=== PATIENT | female | born 1995 ===

== ENCOUNTER 2025-01-22 08:31 | Outpatient (AMB) | payer MEDICAID, SELFPAY ==
--- NOTE | 2025-01-22 08:36 | AMB.OBINITIA ---
Vital Signs 01/22/25 08:46 Height 1.63 m Height Method Stated Weight 89.414 kg Weight Measurement Method Standing Scale BMI 33.8 BP 121/82 Blood Pressure Source Automatic Cuff Blood Pressure Location Right Upper Arm Position Sitting Respiration 17 Pulse 69 Pulse Source Monitor Temp 97.4 F Temp Source Temporal Artery Scan Pulse Oximetry (%) 98 Oxygen Delivery Method Room Air Allergies/Home Meds Allergies & Medications Allergies No Known Allergies Allergy (Verified 01/22/25 08:47) Medication Reconciliation No Known Home Medications 01/22/25 [History Confirmed 01/22/25] Intake Visit Data Collection New Patient or Established: New Patient (never been to [facility]) Reason for Visit:: OBI TRANSFER Seen by Clinical Staff ONLY (RN/MA): No Refrigeration Unit Repairer Required: No Do You Feel Safe at Home: Yes Authorities Contacted: N/A PCP or OBGYN visit in last 3 months: No Hx Now: Yes Are you currently on any form of Control: No Last menstrual period: 11/02/24 Pain Present Currently: No Pain Scale Used: Heredia-Bolaños/Numerical Pain scale:: 0 Smoking Status Smoking Status: Never smoker Questionnaires Covid-19 Vaccine Questionnaire Has patient been vacinated for Covid-19 Have you been vacinated for Covid-19: Yes PHQ-9 PHQ-2 Over the last 2 weeks, how often have you been bothered by any of the following problems? 1. Little interest or pleasure in doing things: not at all 2. Feeling down, depressed, or hopeless: several days Total score: 1 PHQ-9 3. Trouble falling or staying asleep, or sleeping too much: Several days 4. Feeling tired or having little energy: Not at all 5. Poor appetite or overeating: Several days 6. Feeling bad about yourself - or that you are a failure or have let yourself or your family down: Not at all 7. Trouble concentrating on things, such as reading the newspaper or watching television: Not at all 8. Moving or speaking so slowly that other people could have noticed? - Or the opposite - being so fidgety or restless that you have been moving around a lot more than usual: not at all 9. Thoughts that you would be better off or of hurting yourself in some way: Not at all Total score: 3.0 If you checked off any problems, how difficult have these problems made it for you to do your work, take care of things at home, or get along with other people?: not difficult at all Source: Developed by Drs. Rd Luo, Soraida Callahan, Dinesh Lester and colleagues, with an educational annamaria from [employer]. Depression screen completed yes Social History Living Situation History Marital Status: Lives With: Spouse Housing: House Tobacco History Smoking Status: Never smoker Second Hand Smoke Exposure: No Alcohol History Alcohol Intake: Never Domestic Abuse History Do You Feel Safe at Home: Yes History of Present Illness HPI Narrative 29-year-old 1 para 0 was transferred from [facility]. Patient's last. She reports is November 02, 2024. Estimated due date August 12, 2025. Patient has good dates. She logs denies social habits. Denies surgery. Denies chronic illness. She has had some nausea and vomiting but otherwise is feeling well patient had basic labs drawn at her first visit in [place] and hCG was [id number]. TSH normal. Patient is O+, antibody screen negative, RPR nonreactive, rubella immune, hepatitis B negative, HIV negative, hep C negative, GC and Chlamydia were normal. Her hemoglobin and platelets were normal. Drug screen negative. Urine pending. OB Initial Visit OB Flowsheet OB Flowsheet Initial Weight: Not Recorded Date <del>?</del> EGA Weight BP Alb Glu CTX Pres Fundal ht FHR Mov Dilation Station Effacement Hx Notes Visit Note 01/22/25 <del>?</del> 11w 4d 89.414 kg 121/82 unknown 12 145 absent 29 yo . iup 11w3, c/o occ N/V. tired, denies SAB complaints/ tsking PNV reviewed OB labs. NIPT and carrier screen today. schedule MFM anatomy scan, sab precaution. increase fluids Menstrual History Menstrual reliability: definite Flow: normal Menstrual regularity: regular Monthly: Yes Age at menarche: 13 On control pills at conception: No OB History : 1 Para: 0 Hx # Pregnancies: 0 Hx Total # of Abortions (Spontaneous & Elective): 0 # of Living Children: 0 Infection History & Risk Evaluation History of STDs: none HIV risk evaluation: low risk Hepatitis B risk evaluation: low risk Patient or partner has history of Genital Herpes: No Varicella/chicken pox status: immunized Genetic Screening & History Genetic Screening/Teratology Counseling - Includes patient, baby's father, or anyone in either family with: 1. Patient's age 35 years or older as of estimated date of delivery: No 2. Thalassemia (Sami, Kenyan, Mediterranean, or Background); MCV less than 80: No 3. Neural Tube Defect (Meningomyelocele, Spina Bifida, or Anencephaly): No 4. Congenital Heart Defect: No 5. Down Syndrome: No 6. Jacek-Sachs (Ashkenazi Denominational, Cajun, Croatian Eagle): No 7. Steph Disease (Ashkenazi Denominational): No 8. Familial Dysautonomia (Ashkenazi Denominational): No 9. Sickle Cell Disease or Trait (): No 10. Hemophilia or other blood disorders: No 11. Muscular Dystrophy: No 12. Cystic Fibrosis: No 13. Aj's Chorea: No 14. Mental Retardation/Autism: No 15. Other inherited genetic or chromosomal disorder: No 16. Maternal Metabolic Disorder (EG,TYPE 1 Diabetes, PKU): No 17. Patient or baby's father had a child with defects not listed above: No 18. Recurrent loss or a stillbirth: No 19. Medications (including supplements, vitamins, herbs or otc drugs)/illicit/recreational drugs/alcohol since last menstrual period: No 20. Any other: No Infection History 1. Live with someone with TB or exposed to TB: No 2. Rash or viral illness since last menstrual period: No 3. Hepatitis B,C: No Other (see comments) Source: [employer] Review of Systems Review of Systems Systems Reviewed: All systems reviewed, normal except as documented Exam General Limitations: no limitations General Appearance: alert, in no apparent distress, comfortable, cooperative, healthy appearing, well developed and well groomed Head Head exam: atraumatic, normocephalic and normal inspection Resp Respiratory exam: Present normal lung sounds bilaterally Card Cardiovascular exam: Present regular rate, normal rhythm and normal heart sounds Abdominal Abdominal exam: Present soft and normal bowel sounds Psych Psychiatric exam: Present normal affect and normal mood Office Procedures OB Clinic LOC & Office Proc's Nursing/Assessment Patient Status: Initial/New Patient OB Clinic Nursing Assessment: Medication Reconciliation, Update PMH in EMR and Vital Signs OB Clinic Coordination of Care: Complex Care and Chronic Disease 1-5, Consent,records obtained, informed consent, Education Simp Pt/Fam, Lab and Imaging orders and Staff clarify orders Special Needs: Heart tones New Patient Charge New Patient Point Assignment: [id number] New Patient Point Charge: SALES AGENT PROTECTIVE SERVICE Level 4 (9154-7223) Assessment & Plan Diagnosis / Problem List (1) Supervision of high risk , unspecified, first trimester: Status: Acute Plan Reviewed labs with patient today. Continue vitamins and iron. Scheduled maternal- medicine anatomy scan. NIPT and carrier screen today. Discussed diet and will exercise. Increase fluids. Return in 4 weeks OB check Additional Plan Follow Up: 4 Weeks (obc)
[2025-01-22 08:46] VITALS: BP 121/82; PULSE 69; RESP 17; TEMP 36.3; O2SAT 98; BMI 33.8
== END 2025-01-22 09:09 | disposition home or self-care (01) ==
LOC: HODSOBC 08:31
PROVIDERS: Supervising Provider Advanced Practice Midwife; Visit Provider Advanced Practice Midwife
DX: O09.91 Supervision of high risk pregnancy, unspecified, first trimester (principal); Z3A.11 11 weeks gestation of pregnancy
CPT/HCPCS: 99204; G0463

== ENCOUNTER 2025-03-23 08:35 | Outpatient (AMB) | payer MEDICAID, SELFPAY ==
[2025-03-23 08:40] VITALS: BP 125/82; PULSE 80; RESP 16; TEMP 36.7; O2SAT 98; BMI 35.4
--- NOTE | 2025-03-23 08:40 | AMB.OBVISIT ---
Vital Signs 03/23/25 08:40 Height 1.63 m Height Method Stated Weight 94.12 kg Weight Measurement Method Standing Scale BMI 35.4 BP 125/82 Blood Pressure Source Automatic Cuff Blood Pressure Location Left Upper Arm Position Sitting Respiration 16 Pulse 80 Pulse Source Monitor Temp 98.1 F Temp Source Oral Pulse Oximetry (%) 98 Oxygen Delivery Method Room Air Allergies/Home Meds Allergies & Medications Allergies No Known Allergies Allergy (Verified 03/23/25 08:53) Medication Reconciliation No Known Home Medications 01/22/25 [History Confirmed 03/23/25] Intake Visit Data Collection New Patient or Established: Established Patient (seen at [facility] within 3 years) Reason for Visit:: CARE Seen by Clinical Staff ONLY (RN/MA): No Textile Cutting Machine Operator Required: No Do You Feel Safe at Home: Yes Authorities Contacted: N/A PCP or OBGYN visit in last 3 months: Yes Hx Now: Yes Are you currently on any form of Control: No Pain Present Currently: No Pain Scale Used: Heredia-Bolaños/Numerical Pain scale:: 0 Smoking Status Smoking Status: Never smoker Questionnaires Covid-19 Vaccine Questionnaire Has patient been vacinated for Covid-19 Have you been vacinated for Covid-19: Yes PHQ-9 PHQ-2 Over the last 2 weeks, how often have you been bothered by any of the following problems? 1. Little interest or pleasure in doing things: not at all 2. Feeling down, depressed, or hopeless: not at all Total score: 0 PHQ-9 3. Trouble falling or staying asleep, or sleeping too much: Not at all 4. Feeling tired or having little energy: Not at all 5. Poor appetite or overeating: Not at all 6. Feeling bad about yourself - or that you are a failure or have let yourself or your family down: Not at all 7. Trouble concentrating on things, such as reading the newspaper or watching television: Not at all 8. Moving or speaking so slowly that other people could have noticed? - Or the opposite - being so fidgety or restless that you have been moving around a lot more than usual: not at all 9. Thoughts that you would be better off or of hurting yourself in some way: Not at all Total score: 0 Source: Developed by Soraida VelasquezW. [place], Dinesh Lester and colleagues, with an educational annamaria from [employer] Depression screen completed yes Social History Living Situation History Lives With: Spouse Housing: House Tobacco History Smoking Status: Never smoker Second Hand Smoke Exposure: No Alcohol History Alcohol Intake: Never Domestic Abuse History Do You Feel Safe at Home: Yes Care OB Visit Log OB Flowsheet Initial Weight: Not Recorded Date <del>?</del> EGA Weight BP Alb Glu CTX Pres Fundal ht FHR Mov Dilation Station Effacement Hx Notes Visit Note 01/22/25 <del>?</del> 11w 4d 89.414 kg 121/82 unknown 12 145 absent 29 yo . iup 11w3, c/o occ N/V. tired, denies SAB complaints/ tsking PNV reviewed OB labs. NIPT and carrier screen today. schedule MFM anatomy scan, sab precaution. increase fluids 03/23/25 <del>?</del> 20w 1d 94.12 kg 125/82 absent unknown 19 132 active + light fm, denies leaking,bleeding, UC, fetus active MFM appointment is scheduled for March 24. Discussed labor precautions. Increase fluids. Discussed movement. Discussed danger signs and symptoms ER precautions. Return in 4 weeks OB check BÁRBARA Calculator Estimated Delivery Date Method Current WG Current Estimate 08/09/25 LMP (Certain) 20w 1d Notes Visit Date: 01/22/25 Last Updated by: Jennifer Charlton CNM 29 yo lmp 11/02/24. EDC 08/12/25. O+,abs-, rpr;;nr, rub imm, hbsag-,hiv-,HC-, gc/ct-, UT-,TSH-43/333 Office Procedures OB Clinic LOC & Office Proc's Nursing/Assessment Patient Status: Established Patient OB Clinic Nursing Assessment: Medication Reconciliation, Update PMH in EMR and Vital Signs OB Clinic Coordination of Care: Complex Care and Chronic Disease 1-5, Consent,records obtained, informed consent, Education Simp Pt/Fam, 1 Ins Authorization, Lab and Imaging orders, Results/Orders obtained and Staff clarify orders Special Needs: Heart tones Established Patient Charge Established Patient Point Assignment: 150 Established Patient Point Charge: EP Level 4 (120-155) Assessment & Plan Diagnosis / Problem List (1) Supervision of high risk , unspecified, first trimester: Status: Acute Plan [facility] appointment 812. Discussed labor precautions. Increase fluids. Discussed danger signs symptoms ER precautions. Return in 4 weeks OB check Additional Plan Follow Up: 4 Weeks (obc)
== END 2025-03-23 09:27 | disposition home or self-care (01) ==
LOC: HODSOBC 08:35
PROVIDERS: Supervising Provider Advanced Practice Midwife; Visit Provider Advanced Practice Midwife
DX: O09.92 Supervision of high risk pregnancy, unspecified, second trimester (principal); Z3A.20 20 weeks gestation of pregnancy
CPT/HCPCS: 99214; G0463

== ENCOUNTER 2025-04-20 08:22 | Outpatient (AMB) | payer MEDICAID, SELFPAY ==
[2025-04-20 08:27] VITALS: BP 122/82; PULSE 74; RESP 16; TEMP 36.2; O2SAT 98; BMI 36.1
--- NOTE | 2025-04-20 08:27 | OBCLNT_ITS ---
Vital Signs 04/20/25 08:27 Height 1.63 m Height Method Stated Weight 95.935 kg Weight Measurement Method Standing Scale BMI 36.1 BP 122/82 Blood Pressure Source Automatic Cuff Blood Pressure Location Left Upper Arm Position Sitting Respiration 16 Pulse 74 Pulse Source Monitor Temp 97.2 F Temp Source Oral Pulse Oximetry (%) 98 Oxygen Delivery Method Room Air Allergies/Home Meds Allergies & Medications Allergies No Known Allergies Allergy (Verified 04/20/25 08:27) Medication Reconciliation aspirin 81 mg tablet,delayed release (Adult Aspirin Regimen) 81 mg PO QDAY #60 tabs 03/23/25 [Rx Confirmed 04/20/25] Intake Visit Data Collection New Patient or Established: Established Patient (seen at [facility] within 3 years) Reason for Visit:: OBC Seen by Clinical Staff ONLY (RN/MA): No Hair Boiler Operator Required: No Do You Feel Safe at Home: Yes Authorities Contacted: N/A PCP or OBGYN visit in last 3 months: Yes Date of Last PCP or OBGYN visit: 03/23/25 Hx Now: Yes Are you currently on any form of Control: No Pain Present Currently: No Pain Scale Used: Heredia-Bolaños/Numerical Pain scale:: 0 Smoking Status Smoking Status: Never smoker Questionnaires Covid-19 Vaccine Questionnaire Has patient been vacinated for Covid-19 Have you been vacinated for Covid-19: Yes PHQ-9 PHQ-2 Over the last 2 weeks, how often have you been bothered by any of the following problems? 1. Little interest or pleasure in doing things: not at all 2. Feeling down, depressed, or hopeless: not at all Total score: 0 PHQ-9 3. Trouble falling or staying asleep, or sleeping too much: Not at all 4. Feeling tired or having little energy: Not at all 5. Poor appetite or overeating: Not at all 6. Feeling bad about yourself - or that you are a failure or have let yourself or your family down: Not at all 7. Trouble concentrating on things, such as reading the newspaper or watching television: Not at all 8. Moving or speaking so slowly that other people could have noticed? - Or the opposite - being so fidgety or restless that you have been moving around a lot more than usual: not at all 9. Thoughts that you would be better off or of hurting yourself in some way: Not at all Total score: 0 If you checked off any problems, how difficult have these problems made it for you to do your work, take care of things at home, or get along with other people?: not difficult at all Source: Developed by Drs. Rd Luo, Soraida Callahan, Dinesh Lester and colleagues, with an educational annamaria from [employer]. Depression screen completed yes Social History Living Situation History Lives With: Spouse Housing: House Tobacco History Smoking Status: Never smoker Second Hand Smoke Exposure: No Alcohol History Alcohol Intake: Never Domestic Abuse History Do You Feel Safe at Home: Yes Care OB Visit Log OB Flowsheet Initial Weight: Not Recorded Date -?-?-?-?-?-?-?-?-?-?-?-?- EGA Weight BP Alb Glu CTX Pres Fundal ht FHR Mov Dilation Station Effacement Hx Notes Visit Note 01/22/25 -?-?-?-?-?-?-?-?-?-?-?-?- 11w 4d 89.414 kg 121/82 unknown 12 145 a bsent 29 yo . iup 11w3, c/o occ N/V. tired, denies SAB complaints/ tsking PNV reviewed OB labs. NIPT and carrier screen today. schedule MFM anatomy scan, sab precaution. increase fluids 03/23/25 -?-?-?-?-?-?-?-?-?-?-?-?- 20w 1d 94.12 kg 125/82 absent unknown 19 132 active + light fm, denies leaking,bleeding, UC, fetus active MFM appointment is scheduled for March 24. Discussed labor precautions. Increase fluids. Discussed movement. Discussed danger signs and symptoms ER precautions. Return in 4 weeks OB check 04/20/25 -?-?-?-?-?-?-?-?-?-?-?-?- 24w 1d 95.935 kg 122/82 absent unknown 23 135 active Compliant with low- dose baby aspirin. Reports good movement. Denies any bleeding, leaking, contractions. Patient reported that she had some pressure in her low pelvic area that went away. She also had a headache 2 days ago that also went away. Continue low-dose baby aspirin 36 weeks. Third trimester labs today. Discussed diet and weight gain. Walk 40 minutes a day. Discussed labor precautions. Increase fluids. Keep MFM appointment May 19. Return in 4 weeks OB check BÁRBARA Calculator Estimated Delivery Date Method Current WG Current Estimate 08/09/25 LMP (Certain) 24w 1d Notes Visit Date: 04/20/25 Last Updated by: Jennifer Charlton CNM 04/20: sono: 19w5, lmp 11/02/24. EDC: 08/09/25. low dose ASA. start NST/BPPat 36 week. : 38-69w6 Visit Date: 01/22/25 Last Updated by: Jennifer Charlton CNM 29 yo lmp 11/02/24. EDC 08/12/25. O+,abs-, rpr;;nr, rub imm, hbsag-,hiv-,HC-, gc/ct-, UT-,TSH-14/43/333 Office Procedures OB Clinic LOC & Office Proc's Nursing/Assessment Patient Status: Established Patient OB Clinic Nursing Assessment: Medication Reconciliation, Update PMH in EMR and Vital Signs OB Clinic Coordination of Care: Education Complex Pt/Fam, Consent,records obtained, informed consent, Lab and Imaging orders and Staff clarify orders Special Needs: Heart tones Established Patient Charge Established Patient Point Assignment: 110 Established Patient Point Charge: EP Level 3 (80-115) Assessment & Plan Diagnosis / Problem List (1) Encounter for supervision of high risk in second trimester, antepartum: Status: Acute Plan Third trimester labs. Continue vitamins. Discussed diet and weight gain. Walk 40 minutes a day. Follow-up M May 19. labor pre cautions discussed. Increase fluids. Return in 4 weeks OB check Additional Plan Follow Up: 4 Weeks (obc)
== END 2025-04-20 08:55 | disposition home or self-care (01) ==
LOC: HODSOBC 08:22
PROVIDERS: Supervising Provider Advanced Practice Midwife; Visit Provider Advanced Practice Midwife
DX: O09.92 Supervision of high risk pregnancy, unspecified, second trimester (principal); Z3A.24 24 weeks gestation of pregnancy; Z79.82 Long term (current) use of aspirin
CPT/HCPCS: 99213; G0463

== ENCOUNTER 2025-05-04 09:41 | Outpatient (CLI) | payer MEDICAID, SELFPAY ==
[2025-05-04 09:51] VITALS: BP 119/61; PULSE 88
[2025-05-04 09:57] VITALS: BP 119/61; PULSE 88; RESP 18; RESP 99; TEMP 36.9; BMI 36.6
== END 2025-05-04 10:20 | disposition home or self-care (01) ==
LOC: S4S1 09:44 → S4SX 09:45
PROVIDERS: Referring Provider Obstetrics & Gynecology; Visit Provider Obstetrics & Gynecology
DX: O36.8120 Decreased fetal movements, second trimester, not applicable or unspecified (principal); Z3A.25 25 weeks gestation of pregnancy
CPT/HCPCS: 59025

== ENCOUNTER 2025-05-22 13:20 | Outpatient (AMB) | payer MEDICAID, SELFPAY ==
[2025-05-22 13:33] VITALS: PULSE 90; RESP 17; TEMP 36.1; O2SAT 97; BMI 36.7
--- NOTE | 2025-05-22 13:33 | OBCLNT_ITS ---
Vital Signs 05/22/25 13:33 Height 1.63 m Height Method Stated Weight 97.522 kg Weight Measurement Method Standing Scale BMI 36.7 Blood Pressure Source Automatic Cuff Blood Pressure Location Right Upper Arm Position Sitting Respiration 17 Pulse 90 Pulse Source Monitor Temp 96.9 F Temp Source Temporal Artery Scan Pulse Oximetry (%) 97 Oxygen Delivery Method Room Air Allergies/Home Meds Allergies & Medications Allergies No Known Allergies Allergy (Verified 05/22/25 13:38) Medication Reconciliation aspirin 81 mg tablet,delayed release (Adult Aspirin Regimen) 81 mg PO QDAY #60 tabs 03/23/25 [Rx Confirmed 05/22/25] Intake Visit Data Collection New Patient or Established: Established Patient (seen at [facility] within 3 years) Reason for Visit:: OBC Seen by Clinical Staff ONLY (RN/MA): No Civil Engineering Intern Required: No Do You Feel Safe at Home: Yes Authorities Contacted: N/A PCP or OBGYN visit in last 3 months: Yes Date of Last PCP or OBGYN visit: 05/04/25 Hx Now: Yes Are you currently on any form of Control: No Pain Present Currently: No Pain Scale Used: Heredia-Bolaños/Numerical Pain scale:: 0 Smoking Status Smoking Status: Never smoker Questionnaires Covid-19 Vaccine Questionnaire Has patient been vacinated for Covid-19 Have you been vacinated for Covid-19: No PHQ-9 PHQ-2 Over the last 2 weeks, how often have you been bothered by any of the following problems? 1. Little interest or pleasure in doing things: not at all 2. Feeling down, depressed, or hopeless: not at all Total score: 0 PHQ-9 3. Trouble falling or staying asleep, or sleeping too much: Not at all 4. Feeling tired or having little energy: Not at all 5. Poor appetite or overeating: Not at all 6. Feeling bad about yourself - or that you are a failure or have let yourself or your family down: Not at all 7. Trouble concentrating on things, such as reading the newspaper or watching television: Not at all 8. Moving or speaking so slowly that other people could have noticed? - Or the opposite - being so fidgety or restless that you have been moving around a lot more than usual: not at all 9. Thoughts that you would be better off or of hurting yourself in some way: Not at all Total score: 0 If you checked off any problems, how difficult have these problems made it for you to do your work, take care of things at home, or get along with other people?: not difficult at all Source: Developed by Drs. Rd Luo, Soraida Callahan, Dinesh Lester and colleagues, with an educational annamaria from [employer]. Depression screen completed yes Social History Living Situation History Marital Status: Lives With: Spouse Housing: House Tobacco History Smoking Status: Never smoker Second Hand Smoke Exposure: No Alcohol History Alcohol Intake: Never Domestic Abuse History Do You Feel Safe at Home: Yes Care OB Visit Log OB Flowsheet Initial Weight: Not Recorded Date -?-?-?-?-?-?-?-?-?-?-?-?- EGA Weight BP Alb Glu CTX Pres Fundal ht FHR Mov Dilation Station Effacement Hx Notes Visit Note 01/22/25 -?-?-?-?-?-?-?-?-?-?-?-?- 11w 4d 89.414 kg 121/82 unknown 12 145 a bsent 29 yo . iup 11w3, c/o occ N/V. tired, denies SAB complaints/ tsking PNV reviewed OB labs. NIPT and carrier screen today. schedule MFM anatomy scan, sab precaution. increase fluids 03/23/25 -?-?-?-?-?-?-?-?-?-?-?-?- 20w 1d 94.12 kg 125/82 absent unknown 19 132 active + light fm, denies leaking,bleeding, UC, fetus active MFM appointment is scheduled for March 24. Discussed labor precautions. Increase fluids. Discussed movement. Discussed danger signs and symptoms ER precautions. Return in 4 weeks OB check 04/20/25 -?-?-?-?-?-?-?-?-?-?-?-?- 24w 1d 95.935 kg 122/82 absent unknown 23 135 active Compliant with low- dose baby aspirin. Reports good movement. Denies any bleeding, leaking, contractions. Patient reported that she had some pressure in her low pelvic area that went away. She also had a headache 2 days ago that also went away. Continue low-dose baby aspirin 36 weeks. Third trimester labs today. Discussed diet and weight gain. Walk 40 minutes a day. Discussed labor precautions. Increase fluids. Keep [facility] appointment May 19. Return in 4 weeks OB check 05/22/25 -?-?-?-?-?-?-?-?-?-?-?-?- 28w 5d 97.522 kg absent unknown 28 135 act kathy No OB complaints. Patient is compliant with low-dose baby aspirin. Denies leaking, bleeding, cramps. Denies PIH complaints 3-hour GTT . Discussed PIH precautions and signs and symptoms. Walk 40 minutes a day. Decrease sugars. Increase fluids. And continue prenatals. Patient has a follow-up maternal- medicine July 18 BÁRBARA Calculator Estimated Delivery Date Method Current WG Current Estimate 08/09/25 LMP (Certain) 28w 5d Other Estimates 08/13/25 Ultrasound #1 28w 1d Notes Visit Date: 05/22/25 Last Updated by: Jennifer Charlton CNM 3rd tri lab: A1: 4.7, rpr::NR, 1 hr gtt: 148PIH panel: wnl Visit Date: 04/20/25 Last Updated by: Jennifer Charlton CNM 04/20: sono: 19w5, lmp 11/02/24. EDC: 08/09/25. low dose ASA. start NST/BPPat 36 week. : 38-69w6 Visit Date: 01/22/25 Last Updated by: Jennifer Charlton CNM 29 yo lmp 11/02/24. EDC 08/12/25. O+,abs-, rpr;;nr, rub imm, hbsag-,hiv-,HC-, gc/ct-, UT-,TSH-14/43/333 Office Procedures OBC Clinic LOC & Office Proc's Nursing/Assessment Patient Status: Established Patient OB Clinic Nursing Assessment: Medication Reconciliation, Update PMH in EMR and Vital Signs OB Clinic Coordination of Care: Complex Care and Chronic Disease 1-5, Education Complex Pt/Fam, Consent,records obtained, informed consent, Results/Orders obtained and Staff clarify orders Special Needs: Heart tones Established Patient Charge Established Patient Point Assignment: 125 Established Patient Point Charge: EP Level 4 (120-155) Assessment & Plan Diagnosis / Problem List (1) Encounter for supervision of high risk in third trimester, antepartum: Status: Acute Plan 3-hour GTT. Discussed GDM diet. Walk 40 minutes a day. Keep MFM appointment July 18. Discussed labor precautions. Return in 3 weeks OB check Additional Plan Follow Up: 3 Weeks (obc)
== END 2025-05-22 14:12 | disposition home or self-care (01) ==
LOC: HODSOBC 13:20
PROVIDERS: Supervising Provider Advanced Practice Midwife; Visit Provider Advanced Practice Midwife
DX: O09.93 Supervision of high risk pregnancy, unspecified, third trimester (principal); Z3A.28 28 weeks gestation of pregnancy
CPT/HCPCS: 99214; G0463

== ENCOUNTER 2025-06-15 21:31 | Observation (INO) | payer MEDICAID, SELFPAY ==
[2025-06-15] VITALS (16 sets, daily range): BP systolic 118–137; BP diastolic 75–92; PULSE 78–91; RESP 16–97; TEMP 36.8; O2SAT 92–97; BMI 37.5
== END 2025-06-15 23:04 | disposition home or self-care (01) ==
PROVIDERS: Admitting Provider Advanced Practice Midwife; Visit Provider Advanced Practice Midwife
DX: O36.8130 Decreased fetal movements, third trimester, not applicable or unspecified (principal); Z3A.31 31 weeks gestation of pregnancy
CPT/HCPCS: 59025; 59899

== ENCOUNTER 2025-06-22 13:46 | Outpatient (AMB) | payer MEDICAID, SELFPAY ==
--- NOTE | 2025-06-22 13:49 | AMB.OBVISIT ---
Vital Signs 06/22/25 13:56 Height 1.63 m Height Method Stated Weight 99.053 kg Weight Measurement Method Standing Scale BMI 37.5 BP 126/84 Blood Pressure Source Automatic Cuff Blood Pressure Location Left Upper Arm Position Sitting Respiration 18 Pulse 91 Pulse Source Monitor Temp 97.4 F Temp Source Oral Pulse Oximetry (%) 96 Oxygen Delivery Method Room Air Allergies/Home Meds Allergies & Medications Allergies No Known Allergies Allergy (Verified 06/22/25 13:57) Medication Reconciliation aspirin 81 mg tablet,delayed release (Adult Aspirin Regimen) 81 mg PO QDAY #60 tabs 03/23/25 [Rx Confirmed 06/22/25] prenat.vits,grupo,zpq-wfql-dfima 1 tab PO DAILY 06/15/25 [History Confirmed 06/22/25] Intake Visit Data Collection New Patient or Established: Established Patient (seen at [facility] within 3 years) Reason for Visit:: CARE Seen by Clinical Staff ONLY (RN/MA): No 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 Do You Feel Safe at Home: Yes Authorities Contacted: N/A PCP or OBGYN visit in last 3 months: Yes Hx Now: Yes Are you currently on any form of Control: No Pain Present Currently: No Pain Scale Used: Heredia-Bolaños/Numerical Pain scale:: 0 Smoking Status Smoking Status: Never smoker Immunizations Flu Vaccine in the Last 12 Months: Yes Flu Vaccine Exclusion Criteria: Already Received Questionnaires Covid-19 Vaccine Questionnaire Has patient been vacinated for Covid-19 Have you been vacinated for Covid-19: Yes PHQ-9 PHQ-2 Over the last 2 weeks, how often have you been bothered by any of the following problems? 1. Little interest or pleasure in doing things: not at all 2. Feeling down, depressed, or hopeless: not at all Total score: 0 PHQ-9 3. Trouble falling or staying asleep, or sleeping too much: Not at all 4. Feeling tired or having little energy: Not at all 5. Poor appetite or overeating: Not at all 6. Feeling bad about yourself - or that you are a failure or have let yourself or your family down: Not at all 7. Trouble concentrating on things, such as reading the newspaper or watching television: Not at all 8. Moving or speaking so slowly that other people could have noticed? - Or the opposite - being so fidgety or restless that you have been moving around a lot more than usual: not at all 9. Thoughts that you would be better off or of hurting yourself in some way: Not at all Total score: 0 Source: Developed by Drs. dR Luo, Soraida Callahan, Dinesh Lester and colleagues, with an educational annamaria from [employer]. Depression screen completed yes Social History Living Situation History Lives With: Spouse Housing: House Tobacco History Smoking Status: Never smoker Second Hand Smoke Exposure: No Alcohol History Alcohol Intake: Never Domestic Abuse History Do You Feel Safe at Home: Yes Care OB Visit Log OB Flowsheet Initial Weight: Not Recorded Date <del>?</del> EGA Weight BP Alb Glu CTX Pres Fundal ht FHR Mov Dilation Station Effacement Hx Notes Visit Note 01/22/25 <del>?</del> 11w 4d 89.414 kg 121/82 unknown 12 145 absent 29 yo . iup 11w3, c/o occ N/V. tired, denies SAB complaints/ tsking PNV reviewed OB labs. NIPT and carrier screen today. schedule MFM anatomy scan, sab precaution. increase fluids 03/23/25 <del>?</del> 20w 1d 94.12 kg 125/82 absent unknown 19 132 active + light fm, denies leaking,bleeding, UC, fetus active MFM appointment is scheduled for March 24. Discussed labor precautions. Increase fluids. Discussed movement. Discussed danger signs and symptoms ER precautions. Return in 4 weeks OB check 04/20/25 <del>?</del> 24w 1d 95.935 kg 122/82 absent unknown 23 135 active Compliant with low-dose baby aspirin. Reports good movement. Denies any bleeding, leaking, contractions. Patient reported that she had some pressure in her low pelvic area that went away. She also had a headache 2 days ago that also went away. Continue low-dose baby aspirin 36 weeks. Third trimester labs today. Discussed diet and weight gain. Walk 40 minutes a day. Discussed labor precautions. Increase fluids. Keep MFM appointment May 19. Return in 4 weeks OB check 05/22/25 <del>?</del> 28w 5d 97.522 kg absent unknown 28 135 active No OB complaints. Patient is compliant with low-dose baby aspirin. Denies leaking, bleeding, cramps. Denies PIH complaints 3-hour GTT. Discussed PIH precautions and signs and symptoms. Walk 40 minutes a day. Decrease sugars. Increase fluids. And continue prenatals. Patient has a follow-up maternal- medicine July 18 06/22/25 <del>?</del> 33w 1d 99.053 kg 126/84 absent unknown 33 135 active Reports good movement. Patient denies leaking, bleeding, contractions. Patient denies PIH signs or symptoms. Will stop the baby aspirin in 3 weeks. Discussed kick count twice a day. Discussed labor precautions. We discussed third trimester labs. Continue to watch GDM diet and to walk and be active and will return in 2 weeks for OB check. And patient has a follow-up MFM in July BÁRBARA Calculator Estimated Delivery Date Method Current WG Current Estimate 08/09/25 LMP (Certain) 33w 1d Other Estimates 08/13/25 Ultrasound #1 32w 4d 08/13/25 Ultrasound #2 32w 4d 08/09/25 Manual 33w 1d final bárbara< EFW: 66%, growth sono @36w Notes Visit Date: 06/22/25 Last Updated by: Jennifer Charlton CNM 06/22:3 hr gtt wnl Visit Date: 05/22/25 Last Updated by: Jennifer Charlton CNM 3rd tri lab: A1: 4.7, rpr::NR, 1 hr gtt: 148PIH panel: wnl Visit Date: 04/20/25 Last Updated by: Jennifer Charlton CNM 04/20: sono: 19w5, lmp 11/02/24. EDC: 08/09/25. low dose ASA. start NST/BPPat 36 week. : 38-69w6 Visit Date: 01/22/25 Last Updated by: Jennifer Charlton CNM 29 yo lmp 11/02/24. EDC 08/12/25. O+,abs-, rpr;;nr, rub imm, hbsag-,hiv-,HC-, gc/ct-, UT-,TSH- Office Procedures OBC Clinic LOC & Office Proc's Nursing/Assessment Patient Status: Established Patient OB Clinic Nursing Assessment: Medication Reconciliation, Update PMH in EMR and Vital Signs OB Clinic Coordination of Care: Complex Care and Chronic Disease 1-5, Consent,records obtained, informed consent, Education Simp Pt/Fam, 1 Ins Authorization, Lab and Imaging orders, Results/Orders obtained and Staff clarify orders Special Needs: Heart tones Established Patient Charge Established Patient Point Assignment: 150 Established Patient Point Charge: EP Level 4 (120-155) Assessment & Plan Diagnosis / Problem List (1) Encounter for supervision of high risk in third trimester, antepartum: Status: Acute Plan Patient has a follow-up growth scan in July. Discussed PIH signs or symptoms and patient will monitor that. Discussed kick count twice a day. And we talked about continuing GDM diet and being active walking for 40 minutes a day. Return in 2 weeks at which Additional Plan Follow Up: 2 Weeks (obc)
[2025-06-22 13:56] VITALS: BP 126/84; PULSE 91; RESP 18; TEMP 36.3; O2SAT 96; BMI 37.5
== END 2025-06-22 14:58 | disposition home or self-care (01) ==
LOC: HODSOBC 13:46
PROVIDERS: Supervising Provider Advanced Practice Midwife; Visit Provider Advanced Practice Midwife
DX: O09.93 Supervision of high risk pregnancy, unspecified, third trimester (principal); Z3A.33 33 weeks gestation of pregnancy
CPT/HCPCS: 99214; G0463

== ENCOUNTER 2025-07-13 14:23 | Outpatient (AMB) | payer MEDICAID, SELFPAY ==
[2025-07-13 14:35] VITALS: BP 127/86; PULSE 87; RESP 18; TEMP 36.5; O2SAT 97; BMI 38.1
--- NOTE | 2025-07-13 14:35 | OBCLNT_ITS ---
Vital Signs 07/13/25 14:35 Height 1.63 m Height Method Stated Weight 101.264 kg Weight Measurement Method Standing Scale BMI 38.1 BP 127/86 H Blood Pressure Source Automatic Cuff Blood Pressure Location Left Upper Arm Position Sitting Respiration 18 Pulse 87 Pulse Source Monitor Temp 97.7 F Temp Source Temporal Artery Scan Pulse Oximetry (%) 97 Oxygen Delivery Method Room Air Allergies/Home Meds Allergies & Medications Allergies No Known Allergies Allergy (Verified 07/13/25 14:36) Medication Reconciliation aspirin 81 mg tablet,delayed release (Adult Aspirin Regimen) 81 mg PO QDAY #60 tabs 03/23/25 [Rx Confirmed 07/13/25] prenat.vits,grupo,hai-xxbf-qnmob 1 tab PO DAILY 06/15/25 [History Confirmed 07/13/25] Immunizations Immunizations Flu Vaccine in the Last 12 Months: No Flu Vaccine Exclusion Criteria: No Exclusion Criteria Care OB Visit Log OB Flowsheet Initial Weight: Not Recorded Date -?-?-?-?-?-?-?-?-?-?-?-?- EGA Weight BP Alb Glu CTX Pres Fundal ht FHR Mov Dilation Station Ef facement Hx Notes Visit Note 01/22/25 -?-?-?-?-?-?-?-?-?-?-?-?- 11w 4d 89.414 kg 121/82 unknown 12 145 a bsent 29 yo . iup 11w3, c/o occ N/V. tired, denies SAB complaints/ tsking PNV reviewed OB labs. NIPT and carrier screen today. schedule MFM anatomy scan, sab precaution. increase fluids 03/23/25 -?-?-?-?-?-?-?-?-?-?-?-?- 20w 1d 94.12 kg 125/82 absent unknown 19 132 active + light fm, denies leaking,bleeding, UC, fetus active MFM appointment is scheduled for March 24. Discussed labor precautions. Increase fluids. Discussed movement. Discussed danger signs and symptoms ER precautions. Return in 4 weeks OB check 04/20/25 -?-?-?-?-?-?-?-?-?-?-?-?- 24w 1d 95.935 kg 122/82 absent unknown 23 135 active Compliant with low- dose baby aspirin. Reports good movement. Denies any bleeding, leaking, contractions. Patient reported that she had some pressure in her low pelvic area that went away. She also had a headache 2 days ago that also went away. Continue low-dose baby aspirin 36 weeks. Third trimester labs today. Discussed diet and weight gain. Walk 40 minutes a day. Discussed labor precautions. Increase fluids. Keep MFM appointment May 19. Return in 4 weeks OB check 05/22/25 -?-?-?-?-?-?-?-?-?-?-?-?- 28w 5d 97.522 kg absent unknown 28 135 act kathy No OB complaints. Patient is compliant with low-dose baby aspirin. Denies leaking, bleeding, cramps. Denies PIH complaints 3-hour GTT . Discussed PIH precautions and signs and symp toms. Walk 40 minutes a day. Decrease sugars. Increase fluids. And continue prenatals. Patient has a follow-up maternal- medicine July 18 06/22/25 -?-?-?-?-?-?-?-?-?-?-?-?- 33w 1d 99.053 kg 126/84 absent unknown 33 135 active Reports good movement. Patient denies leaking, bleeding, contractions. Patient denies PIH signs or symptoms. Will stop the baby aspirin in 3 weeks. Discussed kick count twice a day. Discussed labor precautions. We discussed third trimester labs. Continue to watch GDM diet and to walk and be active and will return in 2 weeks for OB check. And patient has a follow-up MFM in 07/13/25 -?-?-?-?-?-?-?-?-?-?-?-?- 36w 1d 101.264 kg 127/86 occasional cephalic 36 146 active Reports good movement. Denies headache, blurred vision, epigastric pain. Patient stated a week ago she was changing positions and woke up from a nap had her contacts in wrong and had some irregular vision but reports clear vision now. Denies leaking, bleeding, contractions Reviewed PIH precautions and danger signs symptoms. Increase fluids. Discussed kick count twice a day. We did GBS today. Patient has follow-up MFM July 22 and return in a week OB BÁRBARA Calculator Estimated Delivery Date Method Current WG Current Estimate 08/09/25 LMP (Certain) 36w 1d Other Estimates 08/13/25 Ultrasound #1 35w 4d 08/13/25 Ultrasound #2 35w 4d 08/09/25 Manual 36w 1d final bárbara< EFW: 66%, growth sono @36w Notes Visit Date: 06/22/25 Last Updated by: Jennifer Charlton CNM 06/22:3 hr gtt wnl Visit Date: 05/22/25 Last Updated by: Jennifer Charlton CNM 3rd tri lab: A1: 4.7, rpr::NR, 1 hr gtt: 148PIH panel: wnl Visit Date: 04/20/25 Last Updated by: Jennifer Charlton CNM 04/20: sono: 19w5, lmp 11/02/24. EDC: 08/09/25. low dose ASA. start NST/BPPat 36 week. : 38-69w6 Visit Date: 01/22/25 Last Updated by: Jennifer Charlton CNM 29 yo lmp 11/02/24. EDC 08/12/25. O+,abs-, rpr;;nr, rub imm, hbsag-,hiv-,HC-, gc/ct-, UT-,TSH-14/43/333 Office Procedures OBC Clinic LOC & Office Proc's Nursing/Assessment Patient Status: Established Patient OB Clinic Nursing Assessment: Medication Reconciliation, Update PMH in EMR and Vital Signs OB Clinic Coordination of Care: Complex Care and Chronic Disease 1-5, Education Complex Pt/Fam, Consent,records obtained, informed consent, Lab and Imaging orders, Results/Orders obtained and Staff clarify orders Special Needs: Heart tones Miscellaneous Interventions: Culture Specimen Collection Established Patient Charge Established Patient Point Assignment: 155 Established Patient Point Charge: EP Level 4 (120-155) Assessment & Plan Diagnosis / Problem List (1) Encounter for supervision of high risk in third trimester, antepartum: Status: Acute Plan Discussed labor precautions. Kick count twice a day. Follow-up with maternal- medicine for ultrasound July 22. GBS today. Reviewed preeclampsia signs and symptoms PIH precautions return in a week OB check Additional Plan Follow Up: 1 Week (obc)
== END 2025-07-13 15:18 | disposition home or self-care (01) ==
LOC: HODSOBC 14:23
PROVIDERS: Supervising Provider Advanced Practice Midwife; Visit Provider Advanced Practice Midwife
DX: O09.93 Supervision of high risk pregnancy, unspecified, third trimester (principal); Z3A.36 36 weeks gestation of pregnancy; Z36.85 Encounter for antenatal screening for Streptococcus B
CPT/HCPCS: 99214; G0463

== ENCOUNTER 2025-07-14 15:15 | Observation (INO) | payer MEDICAID, SELFPAY ==
[2025-07-14] VITALS (25 sets, daily range): BP systolic 135–143; BP diastolic 85–86; PULSE 79–92; RESP 18–98; TEMP 36.6; O2SAT 97–99; BMI 38.1
[2025-07-14 16:35] LABS: Collection Type, Urine Clean Catch
[2025-07-14 16:42] LABS: Basophils # (Auto) 0.0 Thou/mm3 (0.0-0.2); Basophils % (Auto) 0 % (0-2.5); Eosinophils # (Auto) 0.1 Thou/mm3 (0.0-0.5); Eosinophils % (Auto) 1 % (0-10); Hematocrit 37.6 % (36.0-46.0); Hemoglobin 12.7 g/dL (12.0-16.0); Immature Granulocytes Auto 0.11 Thou/mm3 (0.00-0.00); Lymphocytes # (Auto) 1.8 Thou/mm3 (1.0-4.8); Lymphocytes % (Auto) 23 % (10-50); Mean Corpuscular HGB Conc 33.8 g/dl (31.0-37.0); Mean Corpuscular Hemoglobin 29.2 pg (25.0-35.0); Mean Corpuscular Volume 86 fL (80-100); Monocytes # (Auto) 0.5 Thou/mm3 (0.0-0.8); Monocytes % (Auto) 7 % (0-12); Neutrophils # (Auto) 5.4 Thou/mm3 (1.8-7.7); Neutrophils % (Auto) 68 % (37-80); Nucleated Red Blood Cell # 0.00 Thou/mm3 (0.00-0.00); Nucleated Red Blood Cell % 0 /100 WBC (0); Platelet Count 215 Thou/mm3 (140-440); RDW Standard Deviation 42.8 fL (36.4-46.3); Red Blood Count 4.35 Miln/mm3 (4.00-5.20); White Blood Count 8.0 Thou/mm3 (3.6-11.0)
[2025-07-14 16:44] LABS: Bacteria,Urine Rare; Bilirubin,Urine Negative (Negative); Blood,Urine Negative (Negative); Clarity,Urine Clear (Clear/Hazy); Color,Urine Lt-Yellow (Lt Yel-Yel); Glucose, Urine Negative (Negative); Ketones,Urine 2+ (Negative); Leukocyte Esterase,Urine Negative (Negative); Nitrite,Urine Negative (Negative); PH,Urine 7.0 (5.0-7.0); Protein,Urine Negative (Neg - Trace); RBC,Urine 2 /hpf (0-3); Specific Gravity,Urine 1.012 (1.001-1.035); Squamous Epithelial Cell,Urine 1 /hpf (0-5); Urobilinogen,Urine Negative mg/dL (0.0-1.0); WBC,Urine 2 /hpf (0-5)
[2025-07-14 16:49] LABS: Creatinine,Random Urine 59 mg/dL (30-125); Protein Total, Random Urine 18 mg/dL (1-14)
[2025-07-14 17:02] LABS: Alanine Aminotransferase 23 U/L (10-49); Albumin, Serum 4.1 gm/dL (3.5-5.0); Albumin/Globulin Ratio 1.8 (1.2-2.2); Alkaline Phosphatase 103 U/L (46-116); Anion Gap 11 (7-16); Aspartate Amino Transferase 18 U/L (0-34); BUN/Creatinine Ratio 13 Ratio (12-20); Bilirubin,Total 0.4 mg/dL (0.3-1.2); Blood Urea Nitrogen < 5 mg/dL (9-23); Calcium 8.8 mg/dL (8.3-10.6); Calcium (Corrected) 8.8 mg/dL (8.5-10.1); Carbon Dioxide 22.5 mMol/L (20.0-31.0); Chloride 107 mMol/L (98-107); Creatinine (Component) 0.4 mg/dL (0.6-1.3); Estimated Creatinine Clearance 239.5 mL/min (>60); Globulin 2.3 gm/dL (2.3-3.5); Glucose 72 mg/dL (74-106); LDH (Lactate Dehydrogenase) 129 U/L (120-246); Osmolality,Calculated 275 (275-295); Potassium 3.4 mMol/L (3.4-5.1); Sodium 140 mMol/L (136-145); Total Protein 6.4 gm/dL (5.7-8.2); Uric Acid 3.5 mg/dL (3.1-7.8); eGFR > 60 See Note
[2025-07-14 17:11] LABS: INR 1.0 (0.9-1.3); Partial Thromboplastin Time 31.0 Seconds (22.0-36.0); Prothrombin Time 10.4 Seconds (9.0-12.2)
--- NOTE | 2025-07-14 23:19 | PD.LDPN ---
Documentation for date of: 07/14/25 OB Labor Progress Note Pelvic Exam Amniotic membrane status: Intact Contractions Monitor mode: External Contraction frequency: occasional Contraction intensity: Mild Status status: Category l Assessment and Plan Comments: Triage Note Jessica is a 30yo with SIUP at 36&2wk presenting to L&D for elevated bp she noted when at [facility]. She had bp 130's in clinic recently and she was counseled by DAIN Charlton to take her bp, and if ever >140 systolic, to present to L&D for eval. She notes no painful/regular ctx, no vaginal bleeding, no lof. Normal movement. She denies headache, vision changes and RUQ pain. PMhx/PNC significant for: -Current BMI 38, taking ASA -Elevated 1hr glucola with normal 3hr GTT -First ROS negative other than what was described above. BP 130's-140's/80's, afebrile General: well developed, well nourished, no acute distress, conversant Cardiac: normal heart rate Lungs: breathing without distress Abdomen: soft, gravid, non-tender, no rebound or guarding Extremities: no edema BLE NST: Reactive, +accels, no decels, mod yeny [place]: no regular ctx pattern Labs: Hgb 12.7 Plt 215 serum creat 0.4 AST/ALT wnl urine prot:creat 0.305 Assessment: Jessica is a 30yo with SIUP at 36&2wk with a couple new mild range bp's and urine p:c 0.305 (all other PIH labs wnl). Benign exam. Reassuring status. Plan: -Patient to return to L&D in 2 days for repeat bp check and repeat PIH labs -Continue routine follow up with OBGYN -Return precautions discussed in detail Molly Keller MD
== END 2025-07-14 17:23 | disposition home or self-care (01) ==
PROVIDERS: Obstetrics & Gynecology; Admitting Provider Advanced Practice Midwife; Visit Provider Advanced Practice Midwife
DX: O26.893 Other specified pregnancy related conditions, third trimester (principal); R03.0 Elevated blood-pressure reading, without diagnosis of hypertension; Z3A.36 36 weeks gestation of pregnancy
CPT/HCPCS: 36415; 59025; 59899; 80053; 81001; 82570; 83615; 84156; 84550; 85025; 85610; 85730

== ENCOUNTER 2025-07-16 16:59 | Outpatient (CLI) | payer MEDICAID, SELFPAY ==
[2025-07-16] VITALS (23 sets, daily range): BP systolic 129–154; BP diastolic 82–95; PULSE 70–90; RESP 17–97; TEMP 36.8; O2SAT 96–98; BMI 38.4
[2025-07-16 19:15] LABS: Collection Type, Urine Clean Catch
[2025-07-16 19:31] LABS: Basophils # (Auto) 0.0 Thou/mm3 (0.0-0.2); Basophils % (Auto) 1 % (0-2.5); Eosinophils # (Auto) 0.2 Thou/mm3 (0.0-0.5); Eosinophils % (Auto) 2 % (0-10); Hematocrit 39.2 % (36.0-46.0); Hemoglobin 13.2 g/dL (12.0-16.0); Immature Granulocytes Auto 0.09 Thou/mm3 (0.00-0.00); Lymphocytes # (Auto) 2.3 Thou/mm3 (1.0-4.8); Lymphocytes % (Auto) 29 % (10-50); Mean Corpuscular HGB Conc 33.7 g/dl (31.0-37.0); Mean Corpuscular Hemoglobin 29.5 pg (25.0-35.0); Mean Corpuscular Volume 88 fL (80-100); Monocytes # (Auto) 0.5 Thou/mm3 (0.0-0.8); Monocytes % (Auto) 7 % (0-12); Neutrophils # (Auto) 4.8 Thou/mm3 (1.8-7.7); Neutrophils % (Auto) 61 % (37-80); Nucleated Red Blood Cell # 0.00 Thou/mm3 (0.00-0.00); Nucleated Red Blood Cell % 0 /100 WBC (0); Platelet Count 217 Thou/mm3 (140-440); RDW Standard Deviation 43.1 fL (36.4-46.3); Red Blood Count 4.48 Miln/mm3 (4.00-5.20); White Blood Count 7.8 Thou/mm3 (3.6-11.0)
[2025-07-16 19:33] LABS: Bacteria,Urine 1+; Bilirubin,Urine Negative (Negative); Blood,Urine Negative (Negative); Clarity,Urine Clear (Clear/Hazy); Color,Urine Colorless (Lt Yel-Yel); Glucose, Urine Negative (Negative); Ketones,Urine Negative (Negative); Leukocyte Esterase,Urine Negative (Negative); Nitrite,Urine Negative (Negative); PH,Urine 7.0 (5.0-7.0); Protein,Urine Negative (Neg - Trace); RBC,Urine 1 /hpf (0-3); Specific Gravity,Urine 1.005 (1.001-1.035); Squamous Epithelial Cell,Urine 7 /hpf (0-5); Urobilinogen,Urine Negative mg/dL (0.0-1.0); WBC,Urine 2 /hpf (0-5)
[2025-07-16 19:39] LABS: Creatinine,Random Urine 23 mg/dL (30-125); Protein Total, Random Urine < 6 mg/dL (1-14)
[2025-07-16 19:50] LABS: Alanine Aminotransferase 22 U/L (10-49); Albumin, Serum 4.1 gm/dL (3.5-5.0); Albumin/Globulin Ratio 1.8 (1.2-2.2); Alkaline Phosphatase 108 U/L (46-116); Anion Gap 12 (7-16); Aspartate Amino Transferase 23 U/L (0-34); BUN/Creatinine Ratio 10 Ratio (12-20); Bilirubin,Total 0.4 mg/dL (0.3-1.2); Blood Urea Nitrogen < 5 mg/dL (9-23); Calcium 8.8 mg/dL (8.3-10.6); Calcium (Corrected) 8.8 mg/dL (8.5-10.1); Carbon Dioxide 21.4 mMol/L (20.0-31.0); Chloride 106 mMol/L (98-107); Creatinine (Component) 0.5 mg/dL (0.6-1.3); Estimated Creatinine Clearance 192.5 mL/min (>60); Globulin 2.3 gm/dL (2.3-3.5); Glucose 74 mg/dL (74-106); LDH (Lactate Dehydrogenase) 166 U/L (120-246); Osmolality,Calculated 273 (275-295); Potassium 3.5 mMol/L (3.4-5.1); Sodium 139 mMol/L (136-145); Total Protein 6.4 gm/dL (5.7-8.2); Uric Acid 3.2 mg/dL (3.1-7.8); eGFR > 60 See Note
[2025-07-16 19:51] LABS: Fibrinogen 414 mg/dL (175-375); INR 1.0 (0.9-1.3); Partial Thromboplastin Time 28.6 Seconds (22.0-36.0); Prothrombin Time 10.4 Seconds (9.0-12.2)
--- NOTE | 2025-07-16 20:00 | PD.LDPN ---
Documentation for date of: 07/16/25 OB Labor Progress Note Pelvic Exam Amniotic membrane status: Intact Contractions Monitor mode: External Contraction frequency: none Status status: Category l Assessment and Plan Comments: Triage Note Jessica is a 30yo with SIUP at 36&4wk presenting to L&D for repeat bp check and PIH labs. She initially presented to triage on 07/14 for elevated bp she noted when at [facility]. She had bp 130's in clinic recently and she was counseled by DAIN Charlton to take her bp, and if ever >140 systolic, to present to L&D for eval. She notes no painful/regular ctx, no vaginal bleeding, no lof. Normal movement. She denies headache, vision changes and RUQ pain. PMhx/PNC significant for: -Current BMI 38, taking ASA -Elevated 1hr glucola with normal 3hr GTT -First -new dx of GHTN 07/16 ROS negative other than what was described above. BP 129-139/82-91 (one bp 150's while I was talking to her about recommendation for IOL and made her nervous), afebrile General: well developed, well nourished, no acute distress, conversant Cardiac: normal heart rate Lungs: breathing without distress Abdomen: soft, gravid, non-tender, no rebound or guarding Extremities: no edema BLE NST: Reactive, +accels, no decels, mod yeny [place]: no regular ctx pattern Labs: Hgb 13.2 Plt 217 serum creat 0.5 AST/ALT wnl urine prot:creat 0.26 (was 0.305 on 07/14) Assessment: Jessica is a 30yo with SIUP at 36&2wk now ruling in for GHTN based on mild range bp's on 07/14 and again today. Urine p:c was 0.305 on 07/14, but today 0.26. Benign exam. Reassuring status. Plan: -Discussed with patient new dx of GHTN and recommendation for IOL at 37wk to avoid developing pre-eclampsia. After our discussion she is amenable. First available opening for IOL is 07/21, she will be 37w2d. Discussed process for IOL and expectations that it will take 2-3 days. Discussed to call am of 12/9 to find out bed availability, and she understands that if unit is very busy her IOL may be delayed. -Return precautions discussed in detail, especially for [place], vision changes, RUQ pain. Molly Keller MD
== END 2025-07-16 20:15 | disposition home or self-care (01) ==
LOC: S4S1 17:01 → S4SX 17:02
PROVIDERS: Referring Provider Obstetrics & Gynecology; Visit Provider Obstetrics & Gynecology
DX: O13.3 Gestational [pregnancy-induced] hypertension without significant proteinuria, third trimester (principal); Z3A.36 36 weeks gestation of pregnancy
CPT/HCPCS: 36415; 59025; 80053; 81001; 82570; 83615; 84156; 84550; 85025; 85384; 85610; 85730; 87077; 87086; 87186

== ENCOUNTER 2025-07-21 21:54 | Inpatient (IN) | payer MEDICAID, SELFPAY ==
[2025-07-21 22:07] VITALS: BMI 38.2
--- NOTE | 2025-07-21 22:07 | XR_ITS ---
Examination: Complete OB ultrasound greater than 14 weeks Date and time of exam: July 21, 2002 5 10:16 p.m. INDICATIONS: -induced hypertension, diagnosis gestational diabetes Findings: Viable intrauterine single fetus with single amniotic sac presentation cephalic Cardiac motion 138 bpm Placenta anterior grade 2 Umbilical cord insertion 3 vessel seen Amniotic fluid index 7.3 cm spine maternal left Cervix 2.1 cm Ovaries obscured by bowel gas. Composite estimated gestational age based on BPD, head circumference, abdominal circumference, femur length is 37 weeks 2 days Estimated weight 3091 g. Survey of intracranial anatomy, spinal anatomy, abdominal anatomy, four-chamber heart performed with no abnormalities identified. Impression: Viable intrauterine gestation cephalic presentation.
[2025-07-21 22:16] VITALS: BMI 38.2
[2025-07-21 22:33] VITALS: BP 139/89; PULSE 106
[2025-07-21 22:39] LABS: Collection Type, Urine Clean Catch
[2025-07-21 22:45] LABS: Basophils # (Auto) 0.0 Thou/mm3 (0.0-0.2); Basophils % (Auto) 0 % (0-2.5); Eosinophils # (Auto) 0.1 Thou/mm3 (0.0-0.5); Eosinophils % (Auto) 1 % (0-10); Hematocrit 41.5 % (36.0-46.0); Hemoglobin 14.3 g/dL (12.0-16.0); Immature Granulocytes Auto 0.12 Thou/mm3 (0.00-0.00); Lymphocytes # (Auto) 2.4 Thou/mm3 (1.0-4.8); Lymphocytes % (Auto) 26 % (10-50); Mean Corpuscular HGB Conc 34.5 g/dl (31.0-37.0); Mean Corpuscular Hemoglobin 29.4 pg (25.0-35.0); Mean Corpuscular Volume 85 fL (80-100); Monocytes # (Auto) 0.4 Thou/mm3 (0.0-0.8); Monocytes % (Auto) 5 % (0-12); Neutrophils # (Auto) 5.9 Thou/mm3 (1.8-7.7); Neutrophils % (Auto) 66 % (37-80); Nucleated Red Blood Cell # 0.00 Thou/mm3 (0.00-0.00); Nucleated Red Blood Cell % 0 /100 WBC (0); Platelet Count 257 Thou/mm3 (140-440); RDW Standard Deviation 42.0 fL (36.4-46.3); Red Blood Count 4.87 Miln/mm3 (4.00-5.20); White Blood Count 9.0 Thou/mm3 (3.6-11.0)
[2025-07-21 22:48] LABS: Bacteria,Urine 1+; Bilirubin,Urine Negative (Negative); Blood,Urine Negative (Negative); Clarity,Urine Clear (Clear/Hazy); Color,Urine Lt-Yellow (Lt Yel-Yel); Glucose, Urine Negative (Negative); Ketones,Urine Negative (Negative); Leukocyte Esterase,Urine Negative (Negative); Nitrite,Urine Negative (Negative); PH,Urine 6.5 (5.0-7.0); Protein,Urine Negative (Neg - Trace); RBC,Urine 1 /hpf (0-3); Specific Gravity,Urine 1.010 (1.001-1.035); Squamous Epithelial Cell,Urine 1 /hpf (0-5); Urobilinogen,Urine Negative mg/dL (0.0-1.0); WBC,Urine 2 /hpf (0-5)
[2025-07-21 22:54] LABS: Creatinine,Random Urine 46 mg/dL (30-125); Protein Total, Random Urine 9 mg/dL (1-14)
[2025-07-21 22:59] LABS: Alanine Aminotransferase 22 U/L (10-49); Albumin, Serum 4.3 gm/dL (3.5-5.0); Albumin/Globulin Ratio 1.7 (1.2-2.2); Alkaline Phosphatase 126 U/L (46-116); Anion Gap 14 (7-16); Aspartate Amino Transferase 20 U/L (0-34); BUN/Creatinine Ratio 15 Ratio (12-20); Bilirubin,Total 0.3 mg/dL (0.3-1.2); Blood Urea Nitrogen 9 mg/dL (9-23); Calcium 9.5 mg/dL (8.3-10.6); Calcium (Corrected) 9.5 mg/dL (8.5-10.1); Carbon Dioxide 18.9 mMol/L (20.0-31.0); Chloride 106 mMol/L (98-107); Creatinine (Component) 0.6 mg/dL (0.6-1.3); Estimated Creatinine Clearance 160.0 mL/min (>60); Globulin 2.6 gm/dL (2.3-3.5); Glucose 116 mg/dL (74-106); Osmolality,Calculated 277 (275-295); Potassium 3.4 mMol/L (3.4-5.1); Sodium 139 mMol/L (136-145); Total Protein 6.9 gm/dL (5.7-8.2); Uric Acid 3.9 mg/dL (3.1-7.8); eGFR > 60 See Note
[2025-07-21 23:02] LABS: Fibrinogen 391 mg/dL (175-375); INR 1.0 (0.9-1.3); Partial Thromboplastin Time 32.6 Seconds (22.0-36.0); Prothrombin Time 10.5 Seconds (9.0-12.2)
[2025-07-21 23:04] VITALS: BP 134/75; PULSE 90
[2025-07-21 23:18] LABS: Syphilis Nonreactive (Nonreactive)
[2025-07-21 23:35] VITALS: BP 121/76; PULSE 96
[2025-07-22] VITALS (17 sets, daily range): BP systolic 107–135; BP diastolic 59–91; PULSE 81–102; RESP 17–20; TEMP 36.7–37
[2025-07-22] MEDS: RINGERS LACTATED 1000 ML 1,000 ML 125 ML IV (04:23)
--- NOTE | 2025-07-22 05:49 | PD.LDHP ---
Documentation for date of: 07/22/25 OB Labor/Induct. HPI History of Present Illness Chief complaint: IOL : 1 Term pregnancies: 0 pregnancies: 0 Living children: 0 History of Abortions: Spontaneous and Elective: 0 History of sections: No History of : No Date of last menstrual period: 11/02/24 BÁRBARA: 08/09/25 Gestational Age (weeks): 37 Gestational Age (days): 3 Gestational age based on last menstrual period: 37 Indication for induction: medical complication History of present illness: 30-year-old 1 para 0 for induction of labor. Patient has a history of gestational hypertension. Patient been followed at [facility] OB clinic for care. Her first visit was is at 11 weeks. Last period November 02, 2024. Estimated due date August 09 2025. First ultrasound was at 19 weeks in March and is confirm dates. She had a 27-week ultrasound May that also confirmed dates. Showed baby growing 36 percentile and normal anatomy. Denies social habits. Denies surgery. Denies chronic illness. Blood pressures have been maintained in mild range with no medication. Obesity. Patient had a abnormal 1 hour GTT but her 3-hour was normal. O+, antibody screen negative, RPR nonreactive, rubella immune, hepatitis B negative, hep C negative, HIV negative, GC and Chlamydia were negative. NIPT and carrier screens negative. And GBS was negative. Ultrasound on admission showed vertex presentation with a EFW of 3019 g. Labs PIH labs were within range her protein creatinine ratio was 0.2. Platelets were normal and H&H was 14/42 History of Present Dating criteria: LMP confirmed by 1st trimester US Adequate Care: Yes Ultrasounds: normal 1st trimester US and normal mid trimester US Obstetrical complications: gestational hypertension and other (obesity) Medical complications: none Labs Labs: Positive: Rubella Titre, Negative: RPR, Hepatitis B, HIV, Chlamydia and Gonorrhea and Unknown: Herpes Type 1, Herpes Type 2, Group Beta Strep and Covid-19 Review of Systems Review of Systems Systems Reviewed: All systems reviewed, normal except as documented Past Medical History Surgical History SURGICAL: Negative Section Meds Home Medications and Allergies Home Medications ?Medication ?Instructions ?Recorded ?Confirmed ?Type prenat.vits,grupo,ltb-qkmd-faqoc 1 tab PO DAILY 06/15/25 07/16/25 History Allergies Allergy/AdvReac Type Severity Reaction Status Date / Time No Known Allergies Allergy Verified 07/21/25 22:08 OB Exam Physical Exam Vital signs: Temp Pulse Resp BP 98.6 F 83 17 132/74 H 07/22/25 03:05 07/22/25 05:29 07/22/25 03:05 07/22/25 05:29 Narrative: Alert and oriented. Normal heart rate and rhythm. Lungs clear no wheezes. Gravid abdomen. Gynecoid pelvis. Estimated weight 6-1/2 pounds. Vaginal exam patient was long, fingertip, -3, posterior. Vertex. heart rate category 1 with accelerations and moderate variability and occasional contractions Detailed Labor and Delivery Exam Dilation (cm): FTP Effacement (%): thick Cervix position: posterior station: -3 Consistency: medium Presentation: Vertex Cervical ripeness score: 2 Membranes: intact Baseline heart rate: 130 monitor accelerations: 15x15 monitor decelerations: None buttermaker continuous churn variability: Moderate (11-25) Contraction frequency (min): occ Contraction duration (sec): 40 Tachysystole: No Contraction intensity: Mild OB Results Labs 07/21/25 22:20 07/21/25 22:20 Labs: Short CBC 07/21/25 Range/Units 22:20 WBC 9.0 (3.6-11.0) Thou/mm3 Hgb 14.3 (12.0-16.0) g/dL Hct 41.5 (36.0-46.0) % Plt Count 257 D (140-440) Thou/mm3 BMP 07/21/25 22:20 Sodium 139 Potassium 3.4 Chloride 106 Carbon Dioxide 18.9 L BUN 9 Creatinine 0.6 Glucose 116 H Calcium 9.5 Liver Function 07/21/25 Range/Units 22:20 Total Bilirubin 0.3 (0.3-1.2) mg/dL AST 20 (0-34) U/L ALT 22 (10-49) U/L Alkaline Phosphatase 126 H (46-116) U/L Albumin 4.3 (3.5-5.0) gm/dL Urine 07/21/25 Range/Units 22:20 Urine Color Lt-Yellow (Lt Yel-Yel) Urine Clarity Clear (Clear/Hazy) Urine pH 6.5 (5.0-7.0) Ur Specific [place] 1.010 (1.001-1.035) Urine Protein Negative (Neg - Trace) Urine Glucose (UA) Negative (Negative) OB Assessment & Plan Assessment and Plan (1) Normal labor and delivery: Status: Acute Additional Plan Induction method: per misoprostol protocol Plan: induction, anticipate NVD and consult MD ace
[2025-07-23] VITALS (224 sets, daily range): BP systolic 106–161; BP diastolic 55–104; PULSE 70–133; RESP 16–19; TEMP 36.4–37.4; O2SAT 94–100
--- NOTE | 2025-07-23 07:57 | PD.LDPN ---
Documentation for date of: 07/23/25 OB Labor Progress Note Pain Control Pain control: tolerating well Pelvic Exam Dilation (cm): 3 Effacement (%): 60 station: -1 Amniotic membrane status: Intact Contractions Monitor mode: External Contraction frequency: 1-4.5 Contraction duration: 40 Contraction phase: Resting Contraction intensity: Mild Status status: Category l Assessment and Plan Assessment: induction ongoing Plan OB labor note: begin Pitocin augmentation CNM Management MD Consulted (describe details below): Yes History of Present Illness HPI 30-year-old 1 para 0 for induction of labor. Patient has a history of gestational hypertension. Patient been followed at [facility] OB clinic for care. Her first visit was is at 11 weeks. Last period November 02, 2024. Estimated due date August 09 2025. First ultrasound was at 19 weeks in March and is confirm dates. She had a 27-week ultrasound May that also confirmed dates. Showed baby growing 36 percentile and normal anatomy. Denies social habits. Denies surgery. Denies chronic illness. Blood pressures have been maintained in mild range with no medication. Obesity. Patient had a abnormal 1 hour GTT but her 3-hour was normal. O+, antibody screen negative, RPR nonreactive, rubella immune, hepatitis B negative, hep C negative, HIV negative, GC and Chlamydia were negative. NIPT and carrier screens negative. And GBS was negative. Ultrasound on admission showed vertex presentation with a EFW of 3019 g. Labs PIH labs were within range her protein creatinine ratio was 0.2. Platelets were normal and H&H was 14/42
[2025-07-23] MEDS: OXYTOCIN in NS 30 units 30 UNIT/500 ML BAG IV (09:37)
[2025-07-23] MEDS: RINGERS LACTATED 1000 ML 1,000 ML 125 ML IV ×3 (12:31→15:11)
--- NOTE | 2025-07-23 17:37 | PD.LDPN ---
Documentation for date of: 07/23/25 OB Labor Progress Note Pain Control Pain control: tolerating well and epidural Pelvic Exam Dilation (cm): 5-6 Effacement (%): 80 station: -1 Amniotic membrane status: Ruptured Comments: AROM at 1700 Contractions Monitor mode: Internal Contraction frequency: 2.5-4 Contraction phase: Resting Contraction intensity: Strong Status status: Category l Assessment and Plan Pitocin rate (mU/min): 7 Assessment: induction ongoing Plan OB labor note: continuous present management History of Present Illness HPI 30-year-old 1 para 0 for induction of labor. Patient has a history of gestational hypertension. Patient been followed at [facility] OB clinic for care. Her first visit was is at 11 weeks. Last period November 02, 2024. Estimated due date August 09 2025. First ultrasound was at 19 weeks in March and is confirm dates. She had a 27-week ultrasound May that also confirmed dates. Showed baby growing 36 percentile and normal anatomy. Denies social habits. Denies surgery. Denies chronic illness. Blood pressures have been maintained in mild range with no medication. Obesity. Patient had a abnormal 1 hour GTT but her 3-hour was normal. O+, antibody screen negative, RPR nonreactive, rubella immune, hepatitis B negative, hep C negative, HIV negative, GC and Chlamydia were negative. NIPT and carrier screens negative. And GBS was negative. Ultrasound on admission showed vertex presentation with a EFW of 3019 g. Labs PIH labs were within range her protein creatinine ratio was 0.2. Platelets were normal and H&H was 14/42 Patient was admitted by Jennifer. I was asked to perform in a ROM. At approximately 1700, patient was resting comfortably in bed with an epidural in place. Patient cervical exam is 5 to 6 cm dilated 80% with -1 station Bag stein ruptured. Clear fluid noted. IUPC placed. With an IUPC in place patient is belinda regularly every 3 minutes.
[2025-07-23] MEDS: MINERAL OIL 30 ML UDC TOP (21:40)
[2025-07-23] MEDS: OXYTOCIN in NS 20 units 20 UNIT/1,000 ML BAG 125 UNIT IV (21:50)
[2025-07-23] MEDS: TRANEXAMIC ACID 1,000 MG IVPB 1,000 MG/100 ML BAG 200 MG IV (21:57)
[2025-07-23] MEDS: OXYTOCIN INJ 10 UNIT/ML VIAL IM (21:58)
--- NOTE | 2025-07-23 22:29 | OBDSUM_ITS ---
Data (Singh) Data Hx Section: No : 1 Term: 0 : 0 Livin Abortions: Spontaneous & Theraputic: 0 Delivery Data (Singh) Labor Data Initiation of labor: Induction Induction/Augmentation Agent: Cytotec-PO, Cervidil and Pitocin ROM date: 07/23/25 ROM time: 16:55 Amniotic membrane rupture type: Artificial Amniotic fluid description: Clear Delivery Data EDC: 08/09/25 EDC calculated by:: LMP/early US confirmation Date of arrival to unit: 07/21/25 Time of arrival to unit: 21:54 Onset of labor date: 07/23/25 Onset of labor time: 17:10 Complete dilation date: 07/23/25 Complete dilation time: 21:01 delivery date: 07/23/25 delivery time: 21:44 Gestational age (weeks): 37 Gestational age (days): 4 Placenta delivery date: 07/23/25 Placenta delivery time: 21:50 Stage 1 total time: Labor - Stage 1 Duration 3 hours and 51 minutes Delivered by: Jennifer Charlton Delivery nurse: Svetlana Eaton RN Health And Nutrition Specialist at delivery: No Support person(s) at delivery: FOB, mother of pt Other staff at delivery: Diaz Oneal RN Delivery Method Delivery method: Normal Vaginal Delivery Presentation: Vertex position: OA Anesthesia Type Anesthesia Type: Epidural Delivery Room Medications Delivery room medications given: IV tylenol Delivery room medications: Methergine 0.2 mg IM, Pitocin 10 u IM, Pitocin 20 u IV, Cytotec 800 NV and other (txa x2) Placenta Placenta delivery description: Spontaneous Cord blood sent to lab: Yes cord blood collection: Cord Blood Type Episiotomy Episiotomy description: None Lacerations #1: Vaginal: 1st degree (small and periurethral) Perineal repair Sutures used for repair: 3.0 Vicryl EBL Estimated blood loss (ml): 400 Umbilical Cord cord description: 3 Vessels Additional Procedures posterior left arm Nezperce Data (Singh) Nezperce Data order: 1 's gender: Female weight (gms): 3110 g Weight (pounds): 6 lbs and 13.7 ozs 1 minute: 8 5 minutes: 9
[2025-07-23] MEDS: BENZO/LANO/ALOE (Dermoplast) 60 GM CAN 1 SPRAY TOP (22:30)
[2025-07-23] MEDS: IBUPROFEN TAB 400 MG TABLET 800 MG PO (22:36)
[2025-07-23] MEDS: ACETAMINOPHEN IVPB 1,000 MG/100 ML VIAL 250 MG IV (23:00)
[2025-07-24] MEDS: TRANEXAMIC ACID 1,000 MG IVPB 1,000 MG/100 ML BAG 200 MG IV (00:25)
[2025-07-24 00:42] VITALS: RESP 16; TEMP 36.7
[2025-07-24] MEDS: Ampicillin Inj 2,000 MG in SODIUM CHLORIDE 0.9% (POP) 100 ML 100 MG IV (01:20)
[2025-07-24 04:00] VITALS: BP 118/80; PULSE 81; RESP 17; TEMP 36.7; O2SAT 98
[2025-07-24] MEDS: Ampicillin Inj 1,000 MG in SODIUM CHLORIDE 0.9% (Popper) 50 ML 50 MG IV ×5 (05:20→21:29)
[2025-07-24 07:30] VITALS: BP 125/85; PULSE 88; RESP 16; TEMP 36.6; O2SAT 96
[2025-07-24 08:00] LABS: Basophils # (Auto) 0.0 Thou/mm3 (0.0-0.2); Basophils % (Auto) 0 % (0-2.5); Eosinophils # (Auto) 0.1 Thou/mm3 (0.0-0.5); Eosinophils % (Auto) 1 % (0-10); Hematocrit 34.5 % (36.0-46.0); Hemoglobin 12.1 g/dL (12.0-16.0); Immature Granulocytes Auto 0.11 Thou/mm3 (0.00-0.00); Lymphocytes # (Auto) 2.6 Thou/mm3 (1.0-4.8); Lymphocytes % (Auto) 17 % (10-50); Mean Corpuscular HGB Conc 35.1 g/dl (31.0-37.0); Mean Corpuscular Hemoglobin 30.0 pg (25.0-35.0); Mean Corpuscular Volume 86 fL (80-100); Monocytes # (Auto) 1.1 Thou/mm3 (0.0-0.8); Monocytes % (Auto) 7 % (0-12); Neutrophils # (Auto) 11.8 Thou/mm3 (1.8-7.7); Neutrophils % (Auto) 75 % (37-80); Nucleated Red Blood Cell # 0.00 Thou/mm3 (0.00-0.00); Nucleated Red Blood Cell % 0 /100 WBC (0); Platelet Count 210 Thou/mm3 (140-440); RDW Standard Deviation 42.0 fL (36.4-46.3); Red Blood Count 4.03 Miln/mm3 (4.00-5.20); White Blood Count 15.8 Thou/mm3 (3.6-11.0)
[2025-07-24] MEDS: DOCUSATE SOD 100 MG CAPSULE PO ×2 (08:35→21:29)
--- NOTE | 2025-07-24 08:39 | PD.LDPPPRG ---
Subjective Subjective Interval history: No complaints of pain. No dizziness. Bonding breast Exam Vital Signs Temp Pulse Resp BP Pulse Ox O2 Del Method 98.1 F 81 17 118/80 98 Room Air 07/24/25 04:00 07/24/25 04:00 07/24/25 04:00 07/24/25 04:00 07/24/25 04:00 07/24/25 04:00 Narrative Exam Vital signs stable afebrile. Rest of soft. Fundus firm below the umbilicus. Perineum intact no swelling. Small lochia. Uterus well involuted. Patient had several vaginal tears and a periurethral that are healing. And negative Homans' sign 2+ DTRs Objective Labs 07/21/25 22:20 07/21/25 22:20 Assessment & Plan Problem List (1) Normal labor and delivery: Status: Acute Assessment Comment Assessment comment: 24 hr pp Plan Comment Plan Comment: Discharge home tomorrow morning. With baby patient will have Tylenol ibuprofen for pain. Continue to observe bonding. Encourage breast-feeding. And comfort measures for vaginal tear. Time Spent With Patient Time: Total time spent is greater than 50% in coordination of care (as documented) at patient's floor/unit and/or counseling patient:
[2025-07-24 11:55] VITALS: BP 125/81; PULSE 89; RESP 17; TEMP 36.7; O2SAT 97
[2025-07-24 19:51] VITALS: BP 133/90; PULSE 90; RESP 14; TEMP 36.8; O2SAT 96
[2025-07-24] MEDS: Hydrocortisone Cr 1% 30 GM TUBE TOP (21:40)
--- NOTE | 2025-07-24 22:23 | PC.NURSE ---
211407/24/25 I called Jennifer Charlton to ask her if she wanted to continue with ampicillin Q4hr because pt and Pt mother wanted to know how much longer she would need to be on antibiotics and if they were still necessary if her vital signs and assessment was good. During report day shift nurse had told me she thinks the pt is on antibiotics because of a low grade fever she had during recovery. I did not see a note when I looked through the pt chart. When asking the pt again she said that Jennifer had mentioned high temp but if she is okay now does she still need the treatment and if I can ask her. I called Jennifer and she explained that the pt had elevated temp and she had did a manual extraction on the pt and wants to continue antibiotics until tomorrow and to put in a order for a repeat CBC in the morning as well. Pt and family educated.
[2025-07-25] MEDS: Ampicillin Inj 1,000 MG in SODIUM CHLORIDE 0.9% (Popper) 50 ML 50 MG IV (01:48)
--- NOTE | 2025-07-25 02:38 | ESPR_ITS ---
Subjective Subjective Interval history: No complaints of pain. No dizziness. Bonding breast Exam Vital Signs Temp Pulse Resp BP Pulse Ox O2 Del Method 98.3 F 90 14 133/90 H 96 Room Air 07/24/25 19:51 07/24/25 19:51 07/24/25 19:51 07/24/25 19:51 07/24/25 19:51 07/24/25 19:51 Narrative Exam Vital signs are stable afebrile. Breast is soft. Fundus firm below the umbilicus. Perineum is intact no swelling. Small lochia. Uterus well involuted. 2+ DTRs. Negative Homans' sign Objective Labs 07/24/25 07:30 07/21/25 22:20 Labs: Laboratory Results - last 24 hr 07/24/25 07:30 WBC 15.8 H D RBC 4.03 Hgb 12.1 D Hct 34.5 L MCV 86 MCH 30.0 MCHC 35.1 RDW Std Deviation 42.0 Plt Count 210 D Neut % (Auto) 75 Lymph % (Auto) 17 [place] % (Auto) 7 Eos % (Auto) 1 Baso % (Auto) 0 Neut # (Auto) 11.8 H Lymph # (Auto) 2.6 [place] # (Auto) 1.1 H Eos # (Auto) 0.1 Baso # (Auto) 0.0 Immature Gran # (Auto) 0.11 H Absolute Nucleated RBC 0.00 Immature Gran % 1 H Nucleated RBC % 0 Assessment & Plan Problem List (1) Normal labor and delivery: Status: Acute Assessment Comment Assessment comment: 48 hr pp Plan Comment Plan Comment: Discharge home with baby. Continue vitamins and iron. Tylenol ibuprofen for pain. Danger signs. ER precautions reviewed. And also talked about signs and symptoms of infection and parameters. Return in 3 weeks for visit. Time Spent With Patient Time: Total time spent is greater than 50% in coordination of care (as documented) at patient's floor/unit and/or counseling patient:
--- NOTE | 2025-07-25 02:43 | ESDS_ITS ---
DS: Providers Provider Date of admission: 07/21/25 21:54 Primary care physician: Physician No Primary/Family Admitting Provider: Sally Gu MD (OB Clinic) Attending Provider on Admission: Servando Macias MD Consults: 07/24/25 00:43 Referral Routine Comment: Attending Provider on DC: Jennifer Charlton CNM Discharging Provider: Jennifer Charlton CNM DS: Diagnosis Problem List Completed Was Problem List Reviewed/Reconciled?: Yes Summary/Hosp Course Brief History: 30-year-old 1 para 0 for induction of labor. Patient has a history of gestational hypertension. Patient been followed at [facility] OB clinic for care. Her first visit was is at 11 weeks. Last period November 02, 2024. Estimated due date August 09 2025. First ultrasound was at 19 weeks in March and is confirm dates. She had a 27-week ultrasound May that also confirmed dates. Showed baby growing 36 percentile and normal anatomy. Denies social habits. Denies surgery. Denies chronic illness. Blood pressures have been maintained in mild range with no medication. Obesity. Patient had a abnormal 1 hour GTT but her 3- hour was normal. O+, antibody screen negative, RPR nonreactive, rubella immune, hepatitis B negative, hep C negative, HIV negative, GC and Chlamydia were negative. NIPT and carrier screens negative. And GBS was negative. Ultrasound on admission showed vertex presentation with a EFW of 3019 g. Labs PIH labs were within range her protein creatinine ratio was 0.2. Platelets were normal and H&H was 14/42 Patient was admitted by Jennifer. I was asked to perform in a ROM. At approximately 1700, patient was resting comfortably in bed with an epidural in place. Patient cervical exam is 5 to 6 cm dilated 80% with -1 station Bag stein ruptured. Clear fluid noted. IUPC placed. With an IUPC in place patient is belinda regularly every 3 minutes. Peripartum Data Delivery Method: Normal Vaginal Delivery Episiotomy Description: None Laceration Description: yes (vag and PU) complications: none Time Spent with Patient Time attestation: Total time spent providing and/or coordinating discharge services: Exam Vital Signs Temp Pulse Resp BP Pulse Ox O2 Del Method 98.3 F 90 14 133/90 H 96 Room Air 07/24/25 19:51 07/24/25 19:51 07/24/25 19:51 07/24/25 19:51 07/24/25 19:51 07/24/25 19:51 Discharge Plan Plan Patient Disposition: HOME (Self Care) Patient condition on transfer: Stable Prescriptions/Referrals Prescriptions/Med Rec: No Action aspirin [Adult Aspirin Regimen] 81 mg tablet,delayed release (DR/EC) 81 mg PO QDAY Qty: 60 1RF prenat.vits,grupo,[id number] Tablet 1 tab PO DAILY Referrals: No Primary/Family,Physician [Primary Care Provider] Patient/Caregiver Discharge Instructions Meds to Beds: No Discharge Activity: resume usual activities Print Language: Turkmen Activity Restrictions/Additional Instructions: Discharge home with baby. Continue vitamins and iron. Tylenol ibuprofen for pain. Discussed danger signs symptoms and ER precautions. Discussed signs symptoms of infection. With parameters. No sex. Increase rest. Return in 3 weeks for check Stand Alone Forms: [employer] Award Info., Patient Portal Info Letter Discharge Order Discharge Orders: Discharge (Routine); Ordered 07/25/25 Ordered By: Jennifer Charlton Planned Discharge Date 07/25/25
--- NOTE | 2025-07-25 03:20 | PC.NURSE ---
0230 Received verbal order from Jennifer Charlton to D/C the patients ampicillin.
[2025-07-25 04:17] VITALS: BP 119/82; PULSE 80; RESP 18; TEMP 37.1; O2SAT 95
--- NOTE | 2025-07-25 05:24 | PC.NURSE ---
[id number]/24/25 Educated/demonstrated to MOB how to use the Breast pump.
[2025-07-25 06:22] LABS: Basophils # (Auto) 0.1 Thou/mm3 (0.0-0.2); Basophils % (Auto) 1 % (0-2.5); Eosinophils # (Auto) 0.1 Thou/mm3 (0.0-0.5); Eosinophils % (Auto) 1 % (0-10); Hematocrit 33.4 % (36.0-46.0); Hemoglobin 11.2 g/dL (12.0-16.0); Immature Granulocytes Auto 0.12 Thou/mm3 (0.00-0.00); Lymphocytes # (Auto) 2.7 Thou/mm3 (1.0-4.8); Lymphocytes % (Auto) 22 % (10-50); Mean Corpuscular HGB Conc 33.5 g/dl (31.0-37.0); Mean Corpuscular Hemoglobin 29.3 pg (25.0-35.0); Mean Corpuscular Volume 87 fL (80-100); Monocytes # (Auto) 0.7 Thou/mm3 (0.0-0.8); Monocytes % (Auto) 6 % (0-12); Neutrophils # (Auto) 8.8 Thou/mm3 (1.8-7.7); Neutrophils % (Auto) 71 % (37-80); Nucleated Red Blood Cell # 0.00 Thou/mm3 (0.00-0.00); Nucleated Red Blood Cell % 0 /100 WBC (0); Platelet Count 206 Thou/mm3 (140-440); RDW Standard Deviation 43.2 fL (36.4-46.3); Red Blood Count 3.82 Miln/mm3 (4.00-5.20); White Blood Count 12.5 Thou/mm3 (3.6-11.0)
== END 2025-07-25 06:44 | disposition home or self-care (01) | DRG 560 ==
LOC: S4SX 07-23 21:56 → S4NX 07-24 00:58
PROVIDERS: Advanced Practice Midwife; Admitting Provider Obstetrics & Gynecology; Visit Provider Obstetrics & Gynecology
DX: O13.4 Gestational [pregnancy-induced] hypertension without significant proteinuria, complicating childbirth (principal); Z37.0 Single live birth; Z3A.37 37 weeks gestation of pregnancy; O99.214 Obesity complicating childbirth; O70.0 First degree perineal laceration during delivery
CPT/HCPCS: 36415; 59409; 76805; 80053; 81001; 82570; 84156; 84550; 85025; 85384; 85610; 85730; 86780; 86850; 86900; 86901; 94762; J0131; J0290; J2590; J2795; J3010; J3490; J7050; J7120; S0191; A9270